=== PATIENT | male | born 1965 | race Caucasian/White ===

== ENCOUNTER 2020-08-28 13:25 | Emergency (ER) | payer SELFPAY ==
[~2020-08-28] VITALS: Ht 63 cm; Wt 79.1 kg
[2020-08-28 13:39] VITALS: BP 168/97; TEMP 97.6
[2020-08-28] MEDS ORDERED: CRUTCHES MC (15:02)
[2020-08-28] MEDS ORDERED: NORCO 325 MG-51 TAB PO (15:03)
[2020-08-28 16:02] VITALS: PULSE 83
== END 2020-08-28 16:00 | disposition home or self-care (01) ==
LOC: COL.ER 13:25
DX: S82.62XA Displaced fracture of lateral malleolus of left fibula, initial encounter for closed fracture (principal); Z88.6 Allergy status to analgesic agent; X50.1XXA Overexertion from prolonged static or awkward postures, initial encounter

== ENCOUNTER 2020-09-03 05:26 | Day surgery (SDC) | payer SELFPAY ==
[~2020-09-03] VITALS: Ht 154.9 cm; Wt 74.1 kg
[2020-09-03] VITALS (7 sets, daily range): BP systolic 139–164; BP diastolic 79–94; PULSE 59–74; TEMP 97.7–98.3
[~2020-09-03 05:26] MED LIST: CRUTCHES MC; NORCO 325 MG-51 TAB PO
[2020-09-03] MEDS ORDERED: SINGULAIR 110 MG/TAB PO (06:00)
[2020-09-03] MEDS ORDERED: PROAIR HFA0.09 MG/AC IH (06:01)
[2020-09-03] MEDS ORDERED: CLARITIN 1010 MG/TAB PO (06:03)
[2020-09-03] MEDS ORDERED: TYLENOL 500MG500 MG PO (06:05)
[2020-09-03] MEDS ORDERED: QVAR REDIHALE10.6 G1 IH (06:13)
[2020-09-03] MEDS ORDERED: DECADRON 1MG TAB1 MG PO (06:20)
--- NOTE | 2020-09-03 08:35 | NUR ---
Patient arrives back to [facility] [place], denies nausea, reports slight pain in left ankle. Patient monitor applied, vitals stable. Patient arrives with oxygen intact and continued upon arrival. Patient's friend/stull hewer at bedside. Patient given food and drink.
--- NOTE | 2020-09-03 09:00 | NUR ---
Patient resting comfortably. Left lower leg elevated with ice pack in place. No drainage noted on dressing. Patient tolerated food and drink without any nausea, denies pain, vitals stable.
--- NOTE | 2020-09-03 09:00 | NUR ---
Patient reports he feels much better, oxygen therapy discontinued.
--- NOTE | 2020-09-03 09:50 | NUR ---
Dismissal instructions gone over with patient and patient's friend. Both verbalize understanding and all questions answered.
--- NOTE | 2020-09-03 10:00 | NUR ---
Patient discharged to private vehicle at patient enterance via wheelchair. Patient's friend is driving. Patient and friend leave thanking staff for services.
== END 2020-09-03 10:00 | disposition home or self-care (01) ==
LOC: SDCO 05:26
DX: S82.842A Displaced bimalleolar fracture of left lower leg, initial encounter for closed fracture (principal); Z79.01 Long term (current) use of anticoagulants; Z88.1 Allergy status to other antibiotic agents; Z88.6 Allergy status to analgesic agent; Z88.8 Allergy status to other drugs, medicaments and biological substances
CPT/HCPCS: C1713; J0690; J1100; J1170; J2250; J2405; J2704; J3010; J7120